=== PATIENT | male | born 1970 | race Caucasian/White ===

== ENCOUNTER 2018-08-15 13:37 | Emergency (ER) | payer SELFPAY ==
[~2018-08-15 13:37] MED LIST: Lorazepam 2 MG/ML VIAL ONE; PROPOFOL 200 MG/20 ML VIAL ONE; Rocuronium Bromide 10 MG/ML (10ML VIAL) ONE; Sodium Chloride 0.9% 1,000 ML BAG ONE; Sodium Chloride Irrig Solution 250 ML BOT ONE; Succinylcholine Chloride 20 MG/ML 10 ml SYRINGE FS ONE
[2018-08-15 14:11] LABS: INR-International Normal Ratio 1.1; Prothrombin Time 14.3 SEC (12.0-14.7)
[2018-08-15 14:18] LABS: ALT (SGPT) 29 U/L (8-55); AST (SGOT) 28 U/L (5-34); Albumin 4.4 g/dL (3.5-5.0); Alkaline Phosphatase 94 U/L (40-150); Anion Gap 37 mmol/L (10-20); BUN (Urea Nitrogen) 12 mg/dL (8.9-20.6); Bilirubin, Total 0.2 mg/dL (0.2-1.2); Calc. Creatinine Clearance 0 mL/min (70-130); Calcium 9.8 mg/dL (7.8-10.44); Chloride 100 mmol/L (98-107); Estimated GFR-MDRD 45; Glucose 309 mg/dL (70-105); Potassium 4.1 mmol/L (3.5-5.1); Protein, Total 8.4 g/dL (6.0-8.3); Sodium 141 mmol/L (136-145)
[2018-08-15 14:22] LABS: Band 7 % (5-11); Eosinophils 1 % (0-10); Hemoglobin 17.6 g/dL (14.0-18.0); Lymphocytes 31 % (21-51); MDiff Complete? YES; Mean Corpuscular HGB CONC 31.9 g/dL (32.0-36.0); Mean Corpuscular Hemoglobin 31.2 pg (27.0-31.0); Mean Corpuscular Volume 97.8 fL (78.0-98.0); Mean Platelet Volume 6.4 fL (7.4-10.4); Monocytes 6 % (0-10); Neutrophil 55 % (42-75); Platelet Count 398 thou/uL (130-400); RBC Distribution Width 12.6 % (11.5-14.5); Red Blood Cell (RBC) Count 5.64 mill/uL (4.70-6.10); White Blood Cell (WBC) Count 28.4 thou/uL (4.8-10.8)
[2018-08-15] MEDS ORDERED: Lorazepam 2 MG/ML VIAL ONE (14:27)
[2018-08-15 14:32] LABS: Carbon Dioxide 8 mmol/L (22-29)
[2018-08-15 14:38] LABS: CKMB 3.6 ng/mL (0-6.6)
--- NOTE | 2018-08-15 14:38 | CT ---
NONCONTRAST HEAD CT: Date: 08/15/18 HISTORY: Fall. Trauma. Seizure. Hit head. Unresponsive patient. Difficulty/unable to speak. Patient not follow ing commands. COMPARISON: 02/12/18. FINDINGS: Examination is markedly limited by motion degradation. Grossly, no hemorrhage or extra-axial hematoma . No definite midline shift. The presence or absence of cortical murillo-white matter differentiation is limited on this exam. Sinuses and mastoid air cells appear to be adequately aerated. Calvarium appea rs to be intact. IMPRESSION: Limited evaluation due to motion. Grossly, no acute intracranial process. Repeat imaging when the pat ient is better able to comply with instructions. Note, there does appear to be nonspecific fullness o f the adenoid tonsils/nasopharynx. Direct visualization is recommended. POS: JULES
[2018-08-15] MEDS ORDERED: Midazolam HCl 10 mg/2 ml Vial ONE (14:49)
[2018-08-15 15:19] LABS: Base Excess-Venous -10.9 mmol/L (0 (+/- 2.5)); Bicarbonate (HCO3v) 17.5 mmol/L (22.0-29.0); CO2 Tension (PvCO2) 46.2 mmHg (41.0-51.0); Calcium, Ionized 1.14 mmol/L (1.12-1.32); Hemoglobin - Calc 18.1 g/dL (12.0-18.0); Potassium 3.4 mmol/L (3.4-4.7); T. Carbon Dioxide 18.9 mmol/L (1.0-85.0); pH (Venous) 7.185 (7.35-7.45); vO2 Saturation-calc 99.5 % (94-98)
[2018-08-15] MEDS ORDERED: Acetaminophen 650 MG Suppository ONE (15:27)
[2018-08-15] MEDS ORDERED: Metoprolol Tartrate 5 MG/5 ML VIAL ONE (16:29)
--- NOTE | 2018-08-15 16:43 | RAD ---
FRONTAL VIEW CHEST: Date: 08/15/18 COMPARISON: 02/12/18. CLINICAL INDICATION: Tube placement. FINDINGS: There is an endotracheal tube with tip at the thoracic inlet. Enteric catheter traverses to the left upper quadrant, distal aspect of which is not reliably discerned on this exam. There is prominence of the cardiac silhouette and pulmonary vasculature. Hazy densities to the lower chest may relate to pl eural fluid. No discrete pneumothorax, although evaluation is limited by supine positioning. There is a mild generalized interstitial prominence of each lung which may relate to edema. IMPRESSION: 1. Findings indicate fluid overload. 2. Supportive tubes as above. Recommend continued follow-up. POS: [facility]
[2018-08-15] MEDS ORDERED: Propofol 1,000 MG/100 ML VIAL IV ONE (16:44)
[2018-08-15] MEDS ORDERED: cefTRIAXone\\ROCEPHIN 1 GM VIAL ONE (16:55)
[2018-08-15] MEDS ORDERED: Furosemide 40 MG/4 ML VIAL ONE (16:59)
[2018-08-15 17:12] LABS: Amphetamine Not Detected (NotDetected); Barbiturates Screen Not Detected (NotDetected); Benzodiazepine Screen Not Detected (NotDetected); Cocaine Metabolite Screen Not Detected (NotDetected); Medtox Control Line Valid? VALID (VALID); Methadone Not Detected (NotDetected); Methamphetamine Not Detected (NotDetected); Opiate Screen Detected (NotDetected); Oxycodone Screen Not Detected (NotDetected); Phencyclidine (PCP) Not Detected (NotDetected); THC/Cannabinoid Screen Detected (NotDetected); Tricyclic Screen Not Detected (NotDetected)
[2018-08-15 18:59] LABS: Bilirubin Negative (Negative); Blood, Urine Large (Negative); Glucose, Urine (Dipstick) 250 mg/dL (Negative); Leukocyte Negative (Negative); Nitrite Negative (Negative); Protein, Urine (Dipstick) > or equal to 300 mg/dL (Neg-Trace); Specific Gravity, Urine 1.025 (1.005-1.030); Urobilinogen 0.2 mg/dL (0.2-1.0)
[2018-08-15 19:06] LABS: Bacteria/HPF Rare-Few HPF (None Seen); Clarity Cloudy (Clear); Crystals/HPF 2+ AMORPH PHOS HPF (Negative); Other Microscopic Description C&S SET UP; Squamous Epithelial 0-3 HPF (0-3); WBC/HPF 0-3 HPF (0-3)
== END 2018-08-15 17:17 | disposition short-term general hospital (02) ==
LOC: MADERS 13:37
DX: A41.9 Sepsis, unspecified organism (principal); S00.81XA Abrasion of other part of head, initial encounter; G40.909 Epilepsy, unspecified, not intractable, without status epilepticus; E11.9 Type 2 diabetes mellitus without complications; R09.2 Respiratory arrest; J81.1 Chronic pulmonary edema; E03.9 Hypothyroidism, unspecified; I10 Essential (primary) hypertension; F31.9 Bipolar disorder, unspecified; F90.9 Attention-deficit hyperactivity disorder, unspecified type; F17.210 Nicotine dependence, cigarettes, uncomplicated; Z79.899 Other long term (current) drug therapy; Z79.84 Long term (current) use of oral hypoglycemic drugs; X58.XXXA Exposure to other specified factors, initial encounter
CPT/HCPCS: 31500; 36415; 51702; 70450; 71045; 80053; 80177; 80306; 81003; 81015; 82330; 82550; 82553; 82803; 83605; 84484; 85025; 85610; 85730; 87040; 87077; 87086; 87149; 93005; 96361; 96365; 96375; 96376; 99292; J0696; J1940; J2060; J2250; J2704; J7050

== ENCOUNTER 2018-12-20 14:21 | Emergency (ER) | payer OTHER, SELFPAY ==
--- NOTE | 2018-12-20 14:49 | RAD ---
CHEST 2 VIEWS: HISTORY: Chest pain. COMPARISON: 08/26/2018. FINDINGS: Heart size is within normal limits. The lungs are clear. No confluent pneumonia, overt edema, or pl eural effusion. IMPRESSION: No acute intrathoracic disease. POS: OFF
[2018-12-20 15:00] LABS: #Basophils 0.2 thou/uL (0.0-0.2); #Eosinphils 0.2 thou/uL (0.0-0.7); #Lymphocytes 4.1 thou/uL (1.20-3.40); #Monocytes 0.7 thou/uL (0.11-0.59); #Neutrophils 5.3 thou/uL (1.40-6.50); %Basophils 1.5 % (0.0-1.0); %Eosinophils 1.5 % (0.0-10.0); %Lymphocytes 39.2 % (21.0-51.0); %Monocytes 6.4 % (0.0-10.0); %Neutrophils 51.4 % (42.0-75.0); Hemoglobin 16.1 g/dL (14.0-18.0); Mean Corpuscular HGB CONC 33.2 g/dL (32.0-36.0); Mean Corpuscular Hemoglobin 29.4 pg (27.0-31.0); Mean Corpuscular Volume 88.6 fL (78.0-98.0); Mean Platelet Volume 6.3 fL (7.4-10.4); Platelet Count 330 thou/uL (130-400); RBC Distribution Width 11.5 % (11.5-14.5); Red Blood Cell (RBC) Count 5.45 mill/uL (4.70-6.10); White Blood Cell (WBC) Count 10.3 thou/uL (4.8-10.8)
[2018-12-20 15:13] LABS: ALT (SGPT) 17 U/L (8-55); AST (SGOT) 12 U/L (5-34); Alkaline Phosphatase 85 U/L (40-150); Anion Gap 12 mmol/L (10-20); BUN (Urea Nitrogen) 14 mg/dL (8.9-20.6); Bilirubin, Total 0.4 mg/dL (0.2-1.2); Calc. Creatinine Clearance 0 mL/min (70-130); Calcium 9.4 mg/dL (7.8-10.44); Carbon Dioxide 27 mmol/L (22-29); Chloride 107 mmol/L (98-107); Estimated GFR-MDRD 74; Glucose 99 mg/dL (70-105); Sodium 142 mmol/L (136-145)
[2018-12-20] MEDS ORDERED: Ipratropium Bromide 2.5 ml Neb ONE (17:30)
[2018-12-20] MEDS ORDERED: Nitroglycerin 2% Ointment 1 INCH/1 GM Packet ONE (17:34)
[2018-12-20] MEDS ORDERED: Aspirin 325 MG TAB ONE (17:34)
[2018-12-20 18:31] LABS: Troponin I Less than 0.010 ng/mL (< 0.028)
== END 2018-12-20 18:58 | disposition short-term general hospital (02) ==
LOC: MADERS 14:21
DX: I20.0 Unstable angina (principal); E11.9 Type 2 diabetes mellitus without complications; I10 Essential (primary) hypertension; G40.909 Epilepsy, unspecified, not intractable, without status epilepticus; E03.9 Hypothyroidism, unspecified; Z87.891 Personal history of nicotine dependence; Z79.899 Other long term (current) drug therapy; Z79.84 Long term (current) use of oral hypoglycemic drugs
CPT/HCPCS: 36415; 71046; 80053; 84484; 85025; 85379; 93005

== ENCOUNTER 2019-03-15 17:47 | Emergency (ER) | payer SELFPAY ==
[2019-03-15] MEDS ORDERED: Aspirin Chewable 81 MG TAB ONE (18:24)
[2019-03-15] MEDS ORDERED: Nitroglycerin 0.4 MG TAB 1 EACH ONE ×2 (18:24→18:57)
[2019-03-15 18:25] LABS: #Basophils 0.2 thou/uL (0.0-0.2); #Eosinphils 0.2 thou/uL (0.0-0.7); #Monocytes 1.1 thou/uL (0.11-0.59); #Neutrophils 8.6 thou/uL (1.40-6.50); %Basophils 1.3 % (0.0-1.0); %Eosinophils 1.5 % (0.0-10.0); %Lymphocytes 28.4 % (21.0-51.0); %Monocytes 7.6 % (0.0-10.0); %Neutrophils 61.3 % (42.0-75.0); Hemoglobin 16.3 g/dL (14.0-18.0); Mean Corpuscular HGB CONC 33.5 g/dL (32.0-36.0); Mean Corpuscular Volume 89.6 fL (78.0-98.0); Mean Platelet Volume 5.9 fL (7.4-10.4); Platelet Count 319 thou/uL (130-400); RBC Distribution Width 12.9 % (11.5-14.5); Red Blood Cell (RBC) Count 5.42 mill/uL (4.70-6.10)
--- NOTE | 2019-03-15 18:28 | RAD ---
XR Chest 1 View Portable HISTORY: Chest pain COMPARISON: 08/26/2018 study FINDINGS: Heart size and mediastinum are within normal limits. The lungs are clear of infiltrates. No significant bony findings. IMPRESSION: No active intrathoracic disease.
[2019-03-15 18:39] LABS: CK (CPK) 171 U/L (30-200); Lipase 45 U/L (8-78)
[2019-03-15 18:41] LABS: ALT (SGPT) 18 U/L (8-55); AST (SGOT) 14 U/L (5-34); Albumin 4.3 g/dL (3.5-5.0); Alkaline Phosphatase 75 U/L (40-150); Anion Gap 15 mmol/L (10-20); BUN (Urea Nitrogen) 14 mg/dL (8.9-20.6); Bilirubin, Total 0.6 mg/dL (0.2-1.2); Calc. Creatinine Clearance 0 mL/min (70-130); Calcium 9.4 mg/dL (7.8-10.44); Carbon Dioxide 25 mmol/L (22-29); Chloride 101 mmol/L (98-107); Estimated GFR-MDRD Greater than 90; Globulin 3.1 g/dL (2.4-3.5); Glucose 82 mg/dL (70-105); Potassium 3.9 mmol/L (3.5-5.1); Protein, Total 7.4 g/dL (6.0-8.3); Sodium 137 mmol/L (136-145)
[2019-03-15] MEDS ORDERED: Sodium Chloride 0.9% 1,000 ML ONE (19:09)
[2019-03-15] MEDS ORDERED: Morphine 4 MG/ML VIAL ONE (19:45)
== END 2019-03-15 21:04 | disposition short-term general hospital (02) ==
LOC: MADERS 17:47
DX: R07.89 Other chest pain (principal); E11.9 Type 2 diabetes mellitus without complications; E03.9 Hypothyroidism, unspecified; E78.5 Hyperlipidemia, unspecified; I10 Essential (primary) hypertension; J44.9 Chronic obstructive pulmonary disease, unspecified; G40.909 Epilepsy, unspecified, not intractable, without status epilepticus; Z87.891 Personal history of nicotine dependence; Z79.899 Other long term (current) drug therapy; Z79.84 Long term (current) use of oral hypoglycemic drugs
CPT/HCPCS: 71045; 80053; 82550; 83690; 83880; 84484; 85025; 93005; 94760; 96361; 96374; J2270; J7050

== ENCOUNTER 2019-04-09 21:29 | Emergency (ER) | payer SELFPAY ==
[2019-04-09] MEDS ORDERED: Albuterol Sulfate 2.5 mg/0.5 ml Neb ONE (21:39)
[2019-04-09 22:15] LABS: Hemoglobin 14.7 g/dL (14.0-18.0); Mean Corpuscular HGB CONC 33.3 g/dL (32.0-36.0); Mean Corpuscular Hemoglobin 30.2 pg (27.0-31.0); Mean Corpuscular Volume 90.7 fL (78.0-98.0); Platelet Count 290 thou/uL (130-400); RBC Distribution Width 12.8 % (11.5-14.5); Red Blood Cell (RBC) Count 4.86 mill/uL (4.70-6.10); White Blood Cell (WBC) Count 9.5 thou/uL (4.8-10.8)
[2019-04-09] MEDS ORDERED: Nitroglycerin 0.4 MG TAB 1 EACH ONE (22:19)
[2019-04-09] MEDS ORDERED: Nitroglycerin 2% Ointment 1 INCH/1 GM Packet ONE (22:19)
--- NOTE | 2019-04-09 22:26 | RAD ---
RADIOGRAPH CHEST 1 VIEW: DATE: 04/09/2019 HISTORY: 49-year-old male with chest pain FINDINGS: There are no airspace densities, pulmonary edema, pneumothorax, or cardiomegaly. The lateral costophr enic angles are sharp. IMPRESSION: No acute cardiopulmonary findings.
[2019-04-09 22:28] LABS: ALT (SGPT) 31 U/L (8-55); AST (SGOT) 22 U/L (5-34); Albumin 4.1 g/dL (3.5-5.0); Alkaline Phosphatase 70 U/L (40-150); Anion Gap 18 mmol/L (10-20); BUN (Urea Nitrogen) 16 mg/dL (8.9-20.6); Bilirubin, Total 0.4 mg/dL (0.2-1.2); CK (CPK) 388 U/L (30-200); Calc. Creatinine Clearance 0 mL/min (70-130); Calcium 9.3 mg/dL (7.8-10.44); Carbon Dioxide 25 mmol/L (22-29); Chloride 103 mmol/L (98-107); Estimated GFR-MDRD Greater than 90; Globulin 3.2 g/dL (2.4-3.5); Glucose 109 mg/dL (70-105); Potassium 4.6 mmol/L (3.5-5.1); Protein, Total 7.3 g/dL (6.0-8.3); Sodium 141 mmol/L (136-145); Troponin I Less than 0.010 ng/mL (< 0.028)
[2019-04-09 22:35] LABS: Anisocytosis SLIGHT = 6-15 cells (100X) (0-5/hpf); Band 3 % (5-11); Eosinophils 1 % (0-10); Lymphocytes 22 % (21-51); MDiff Complete? YES; Monocytes 2 % (0-10); Neutrophil 72 % (42-75); Platelet Morphology Comment Appears Adequate
== END 2019-04-09 23:17 | disposition short-term general hospital (02) ==
LOC: MADERS 21:29
DX: R07.9 Chest pain, unspecified (principal); E78.5 Hyperlipidemia, unspecified; E78.00 Pure hypercholesterolemia, unspecified; I10 Essential (primary) hypertension; E11.9 Type 2 diabetes mellitus without complications; E03.9 Hypothyroidism, unspecified; G40.909 Epilepsy, unspecified, not intractable, without status epilepticus; J44.9 Chronic obstructive pulmonary disease, unspecified; Z87.891 Personal history of nicotine dependence; Z79.01 Long term (current) use of anticoagulants; Z79.899 Other long term (current) drug therapy; Z79.52 Long term (current) use of systemic steroids; Z79.84 Long term (current) use of oral hypoglycemic drugs
CPT/HCPCS: 71045; 80053; 82550; 83880; 84484; 85007; 85027; 93005; 94640; J7611

== ENCOUNTER 2019-08-16 12:23 | Outpatient (CLI) | payer OTHER ==
--- NOTE | 2019-08-16 12:56 | RAD ---
EXAM: 3 views of the left hand COMPARISON: None HISTORY: Hand pain FINDINGS: 3 views of the hand shows no evidence of acute fracture or dislocation. There is an abnorma l shape of the fifth metacarpal which may represent a remote healed fracture. No degenerative changes are seen. No soft tissue swelling is present. IMPRESSION: No evidence of acute osseous abnormality.
[2019-08-16 13:35] LABS: ALT (SGPT) 33 U/L (8-55); AST (SGOT) 18 U/L (5-34); Albumin 4.4 g/dL (3.5-5.0); Alkaline Phosphatase 73 U/L (40-110); Anion Gap 16 mmol/L (10-20); BUN (Urea Nitrogen) 13 mg/dL (8.9-20.6); Bilirubin, Total 0.8 mg/dL (0.2-1.2); Calc. Creatinine Clearance 0 mL/min (70-130); Calcium 9.2 mg/dL (7.8-10.44); Carbon Dioxide 24 mmol/L (22-29); Cardiac Risk 3.8 (Less than 4.5); Chloride 103 mmol/L (98-107); Cholesterol 214 mg/dl (< 200 Desired); Estimated GFR-MDRD Greater than 90; Globulin 3.4 g/dL (2.4-3.5); Glucose 105 mg/dL (70-105); HDL Cholesterol 56 mg/dL (>60 Neg Risk); LDL Cholesterol, Calculated 99 mg/dL; Potassium 4.3 mmol/L (3.5-5.1); Protein, Total 7.8 g/dL (6.0-8.3); Sodium 139 mmol/L (136-145); Triglycerides 297 mg/dL (Less than 150)
[2019-08-16 17:03] LABS: Hemoglobin A1c 5.4 % (4.0-6.0)
== END 2019-08-16 12:24 | disposition home or self-care (01) ==
LOC: MADLABBHPM 12:23 → EDSTATUS 12:27
PROVIDERS: ATTEND Family Medicine
DX: M25.532 Pain in left wrist (principal); R73.02 Impaired glucose tolerance (oral); I10 Essential (primary) hypertension; E78.2 Mixed hyperlipidemia
CPT/HCPCS: 36415; 80053; 80061; 83036